=== PATIENT | male | born 1930 | race Caucasian/White ===

== ENCOUNTER → 2016-07-30 | Outpatient (CLI) | payer BC ==
[~2016-07-30] MED LIST: ASPI1TAB83 PO; CEFU1TAB36 PO; CIPR250T3 PO; CMD5 PO; ERGO1TAB10 PO; ERGO500037 PO; FINA5TAB4 PO; GLUC1CAP35 PO; HYG/25 PO; METO1TAB31 PO; METO25TA3 PO; NITR1CAP33 PO; OXYC-57 PO; PHEN-939 PO
== END | disposition home or self-care (01) ==
LOC: C.PATHSPEC 17:26
PROVIDERS: ATTEND Urology
DX: C65.1 Malignant neoplasm of right renal pelvis (principal); N39.0 Urinary tract infection, site not specified

== ENCOUNTER → 2016-09-05 | Outpatient (CLI) | payer BC ==
[~2016-09-05] MED LIST changes: +METO-478 PO; -METO1TAB31 PO
== END | disposition home or self-care (01) ==
LOC: C.LABSPEC 15:30
PROVIDERS: ATTEND Urology
DX: N39.0 Urinary tract infection, site not specified (principal); C65.1 Malignant neoplasm of right renal pelvis

== ENCOUNTER → 2016-09-05 | Outpatient (CLI) | payer BC | END | disposition home or self-care (01) | LOC: C.PATH 15:41 | PROVIDERS: ATTEND Urology | DX: C65.1 Malignant neoplasm of right renal pelvis (principal) ==

== ENCOUNTER → 2016-10-23 | Outpatient (CLI) | payer BC ==
[2016-10-23 16:50] LABS: HEMATOCRIT 41.9 % (42-52); MEAN CELL VOLUME 105.5 fL (80-100); MEAN CORPUSCULAR HEMOGLOBIN 34.8 pg (25-34); MEAN CORPUSCULAR HGB CONC 32.9 g/dl (32-36); MEAN PLATELET VOLUME 11.3 fL (7.4-10.4); PLATELET COUNT 188 K/uL (130-400); RED BLOOD COUNT 3.97 M/uL (4.7-6.1); WHITE BLOOD COUNT 6.49 K/uL (4.8-10.8)
[2016-10-23 17:04] LABS: BLOOD UREA NITROGEN 30 mg/dl (7-18); BUN/CREATININE RATIO 14.9 (10-20); CALCIUM 8.8 mg/dl (8.5-10.1); CARBON DIOXIDE 27 mmol/L (21-32); CHLORIDE 110 mmol/L (98-107); GLUCOSE 80 mg/dl (70-99); PHOSPHORUS 2.4 mg/dl (2.5-4.9); POTASSIUM 4.5 mmol/L (3.5-5.1); SODIUM 144 mmol/L (136-145)
[2016-10-23 17:08] LABS: URINE PROTIEN/CREAT RATIO 0.1 (0-0.2); URINE TOTAL PROTEIN 13.5 mg/dl (0-11.9)
[2016-10-23 17:17] LABS: URINE APPEARANCE CLEAR (CLEAR); URINE BILIRUBIN NEG (NEG); URINE COLOR YELLOW; URINE NITRITE NEG (NEG); URINE SPECIFIC GRAVITY 1.021 (1.000-1.030); UROBILINOGEN NEG (NEG)
[2016-10-23 17:21] LABS: MANUAL MICROSCOPIC REQUIRED? NO; REVIEW REQ? NO
== END | disposition home or self-care (01) ==
LOC: C.LABBC 12:44
PROVIDERS: ATTEND Internal Medicine Nephrology
DX: N18.4 Chronic kidney disease, stage 4 (severe) (principal); R60.9 Edema, unspecified; I12.9 Hypertensive chronic kidney disease with stage 1 through stage 4 chronic kidney disease, or unspecified chronic kidney disease; E55.9 Vitamin D deficiency, unspecified

== ENCOUNTER → 2017-01-29 | Outpatient (CLI) | payer BC ==
[~2017-01-29] MED LIST changes: -METO-478 PO; +METO1TAB31 PO
--- NOTE | 2017-01-29 11:51 | DIAGNOSTIC IMAGING REPORT ---
BRAIN WITHOUT CONTRAST CLINICAL HISTORY: 86 years-old Male presenting with EXERTIONAL KENDRICK. TECHNIQUE: Multisequence, multiplanar MR imaging of the brain was performed without the use of intravenous contrast. IV contrast: None. COMPARISON: 05/25/2007. FINDINGS: Ventricles and sulci normal in size. Periventricular and subcortical white matter T2/FLAIR hyperintensity, nonspecific but likely indicative of chronic small vessel ischemic change. No mass effect or midline shift. No restricted diffusion to suggest acute ischemia. No hemorrhage. No extra-axial fluid collection. T2 skull base flow voids preserved. Bone marrow signal intensity within the calvarium within normal limits. IMPRESSION: No acute intracranial abnormality. Electronically signed by: Jaime Ballesteros M.D. 01/29/2017 11:49 AM Dictated Date/Time: 01/29/2017 11:46 AM
== END | disposition home or self-care (01) ==
LOC: C.MRIBC 10:33
PROVIDERS: ATTEND Family Medicine
DX: G44.84 Primary exertional headache (principal)

== ENCOUNTER 2017-02-12 12:36 | Day surgery (SDC) | payer BC ==
[2017-01-29 13:41] VITALS: Ht 182.9 cm; Wt 110.4 kg
--- NOTE | 2017-01-29 14:23 | PAT Medication Instructions ---
Service Date Jan 29, 2017. Current Home Medication List Aspirin (Aspirin), 1 TAB PO QAM Ergocalciferol (Vitamin D 66465 Unit), 50,000 UNIT PO MONTHLY Finasteride (Proscar), 1 TAB PO QAM Exduxefywpy-Ylfyllhkkon-Arr C- (Glucosamine Chondroitin), 1 TAB PO QAM Metoprolol Succinate (Toprol Xl), 2 TAB PO QPM Nitrofurantoin Macrocrystals (Macrodantin), 1 CAP PO QPM Warfarin Sod (Coumadin), 1 TAB PO SEE NOTES BELOW Medication Instructions For Your Scheduled Surgery - Hold the following medications 2 weeks prior to surgery: Hqwfcvviuyc-Lunxssssnas-Rys C- (Glucosamine Chondroitin), 1 TAB PO QAM - Hold the following medications 5 days prior to surgery per surgeon and cardiology: Warfarin Sod (Coumadin), 1 TAB PO SEE NOTES BELOW Aspirin (Aspirin), 1 TAB PO QAM - Take the following medications the morning of surgery with a sip of water OTHERWISE NOTHING TO EAT OR DRINK AFTER MIDNIGHT: Finasteride (Proscar), 1 TAB PO QAM - Take the following medications as scheduled the night before surgery: Metoprolol Succinate (Toprol Xl), 2 TAB PO QPM Nitrofurantoin Macrocrystals (Macrodantin), 1 CAP PO QPM If you have any questions please call us at [phone] or [phone] or [phone]
--- NOTE | 2017-01-29 15:19 | DIAGNOSTIC IMAGING REPORT ---
CHEST PREADMISSION(PA/LAT) CLINICAL HISTORY: 86 years-old Male presenting with preadmission chest x-ray. TECHNIQUE: PA and lateral views of the chest were obtained. COMPARISON: None. FINDINGS: Cardiomediastinal silhouette normal. Bilateral eventrations of the hemidiaphragms. Lungs and pleural spaces clear. Degenerative changes of the thoracic spine. Upper abdomen normal. IMPRESSION: 1. No acute cardiopulmonary disease. Electronically signed by: Jaime Ballesteros M.D. 01/29/2017 3:17 PM Dictated Date/Time: 01/29/2017 3:16 PM
[2017-01-29 15:28] LABS: BASO % 0.6 %; BASO ABS # 0.04 K/uL (0-0.2); COMPLETE YES; EOS % 3.2 %; IG% 0.3 %; LYMPH % 23.5 %; LYMPH ABS # 1.47 K/uL (1.2-3.4); MEAN CELL VOLUME 102.3 fL (80-100); MEAN CORPUSCULAR HGB CONC 33.3 g/dl (32-36); MEAN PLATELET VOLUME 10.9 fL (7.4-10.4); MONO % 10.9 %; NEUT % 61.5 %; PLATELET COUNT 192 K/uL (130-400); RED BLOOD COUNT 3.91 M/uL (4.7-6.1); WHITE BLOOD COUNT 6.25 K/uL (4.8-10.8)
[2017-01-29 15:28] LABS: URINE APPEARANCE CLEAR (CLEAR); URINE BILIRUBIN NEG (NEG); URINE COLOR YELLOW; URINE NITRITE NEG (NEG); URINE PH 5.5 (4.5-7.5); URINE SPECIFIC GRAVITY 1.022 (1.000-1.030); UROBILINOGEN NEG (NEG)
[2017-01-29 15:29] LABS: MANUAL MICROSCOPIC REQUIRED? NO; REVIEW REQ? NO
[2017-01-29 16:18] LABS: BUN/CREATININE RATIO 14.9 (10-20); CALCIUM 9.2 mg/dl (8.5-10.1); CREATININE 1.9 mg/dl (0.60-1.40); POTASSIUM 4.4 mmol/L (3.5-5.1)
[~2017-02-12] VITALS: Ht 182.9 cm; Wt 110.4 kg
[~2017-02-12 12:36] MED LIST changes: -CEFU1TAB36 PO; -CIPR250T3 PO; +CIPROFLOXACIN / D5W 400 MG IV SCH; -ERGO1TAB10 PO; +GENTAMICIN INJ 80 MG in DEXTROSE 5% 100ML 100 ML IV SCH; -HYG/25 PO; -METO25TA3 PO; +MITOMYCIN FOR IR SCH; -OXYC-57 PO; -PHEN-939 PO; +SODIUM CHLORIDE 0.9% 1000ML 1,000 ML IV SCH
--- NOTE | 2017-02-12 13:14 | History & Physical Bridge Note ---
H&P Re-Evaluation Bridge Note: I have examined the patient, reviewed the History & Physical and in the interval since the performance of the History & Physical I have noted the following changes of clinical significance: No changes noted
[2017-02-12 13:25] VITALS: BP 177/83; PULSE 58; TEMP 36; O2SAT 98
[2017-02-12 13:29] LABS: INR 1.1 (0.9-1.1); PARTIAL THROMBOPLASTIN RATIO 1.1; PROTHROMBIN TIME (PATIENT) 11.7 SECONDS (9.0-12.0)
[2017-02-12] MEDS ORDERED: FENTANYL CITRATE INJ 50 MCG/1 ML 2 ML VIAL ONE (14:15)
[2017-02-12] MEDS ORDERED: PROPOFOL IV EMULSION 10 MG/ML 20 ML VIAL IV ONE (14:16)
[2017-02-12] MEDS ORDERED: LIDOCAINE HCL 2% 2 ML VIAL (20MG/ML) ONE (14:57)
[2017-02-12] MEDS ORDERED: BELLADONNA/OPIUM SUPP 60 MG SUPP PR ONE (14:57)
[2017-02-12] MEDS ORDERED: PROMETHAZINE HCL INJ 12.5 MG in SODIUM CHLORIDE 0.9% 50ML 50 ML IV PRN (15:00)
[2017-02-12] MEDS ORDERED: NALOXONE HCL 0.4 MG/1 ML VIAL/CARP IV PRN (15:00)
[2017-02-12] MEDS ORDERED: EpHEDrine SULFATE INJ 50 MG/ML AMP IV PRN (15:00)
[2017-02-12] MEDS ORDERED: ONDANSETRON INJ 2 MG/ML 2 ML VIAL IV PRN (15:00)
[2017-02-12] MEDS ORDERED: FLUMAZENIL 0.1 MG/1 ML 10 ML VIAL IV PRN (15:00)
[2017-02-12] MEDS ORDERED: ATROPINE SULFATE 0.1 MG/ML 5ML SYR IV PRN (15:00)
[2017-02-12] MEDS ORDERED: FENTANYL CITRATE INJ 50 MCG/1 ML 2 ML VIAL IV PRN (15:00)
[2017-02-12] MEDS ORDERED: LABETALOL HCL IV 5 MG/ML 20ML IV PRN (15:00)
[2017-02-12] MEDS ORDERED: SODIUM CHLORIDE 0.9% INJ 10 ML VIAL ONE (15:35)
[2017-02-12] MEDS ORDERED: EpHEDrine SULFATE INJ 50 MG/ML AMP ONE (15:35)
[2017-02-12] MEDS ORDERED: PHENYLEPHRINE 100MCG/ML 5ML SYR ONE (15:35)
[2017-02-12] MEDS ORDERED: CIPR250T3 PO (15:44)
[2017-02-12] MEDS ORDERED: OXYC-57 PO (15:44)
[2017-02-12] MEDS ORDERED: PHEN-939 PO (15:44)
--- NOTE | 2017-02-12 15:47 | Discharge Instructions ---
Discharge Instructions Date of Service Feb 12, 2017. Admission Reason for Admission: Bladder Cancer Discharge Discharge Diagnosis / Problem: Urothelial cancer of prostate s/p resection Discharge Goals Goal(s): Improve disease control, Diagnostic testing, Therapeutic intervention Activity Recommendations Activity Limitations: as noted below Lifting Limitations: no more than 25 pounds, gradually increase as tolerated ( x 3-5 days) Exercise/Sports Limitations: rest today, gradually increase as tolerated (x 3- 5 days) May Resume Sexual Activity: after two weeks Shower/Bathe: tomorrow . Instructions / Follow-Up Instructions / Follow-Up In office as scheduled for vo removal and for discussion of pathology Discharge Diet Recommended Diet: Regular Diet (good fluid intake) Procedures Procedures Performed: Transurethral Resection Prostate with Tumor; Mitomycin C Instillation Pending Studies Studies pending at discharge: yes List of pending studies: Pathology review Medical Emergencies . Who to Call and When: Medical Emergencies: If at any time you feel your situation is an emergency, please call 911 immediately. . Non-Emergent Contact Non-Emergency issues call your: Urologist Call Non-Emergent contact if: you have a fever, temperature is above 101, your pain is not controlled, your pain is worsening, your pain is unusual for you, your pain is concerning you, you have any medication questions . . "Provider Documentation" section prepared by Casey Castle. . VTE Core Measure Inpt VTE Proph given/why not?: SCD's [place] Drug Monitoring Program Search Results: patient reviewed within database, no issues identified
--- NOTE | 2017-02-12 15:56 | [facility] Post Operative Brief Note ---
Immediate Operative Summary Operative Date Feb 12, 2017. Pre-Operative Diagnosis Urothelial lesion of the bladder neck and prostate, history of bladder and right renal pelvis urothelial carcinoma Post-Operative Diagnosis Same Procedure(s) Performed Transurethral Resection Prostate with Tumor; Mitomycin C Instillation Surgeon Dr. Casey Castle Leather Skinner Surgeon(s) none Estimated Blood Loss 30 ml Findings 40 mg of Mitomycin C instilled in 40 cc H2O, bladder neck tumor and prostate resected, no other intravesical lesions Specimens a. prostate with tumor b. prostate chips Drains 22 fr vo 10 cc H2O Anesthesia GALMA Complication(s) None Disposition Recovery Room / PACU
[2017-02-12] MEDS ORDERED: OXYCODONE/ACETAMINOPHEN 5-325 TAB PO PRN (16:00)
[2017-02-12] MEDS ORDERED: PHENAZOPYRIDINE HCL 100 MG TAB PO PRN (16:00)
--- NOTE | 2017-02-12 16:00 | Anesthesiology Progress Note ---
Anesthesia Post Op Note Date & Time Feb 12, 2017 at 15:59 Vital Signs Pain Intensity: 0 Vital Signs Past 12 Hours Date Time Temp Pulse Resp B/P (MAP) Pulse Ox O2 Delivery O2 Flow Rate FiO2 02/12/17 15:45 47 14 169/93 98 Oxymask 3 02/12/17 15:35 36.1 52 14 157/99 100 Oxymask 10 02/12/17 15:28 36.1 52 16 182/90 100 Oxymask 10 02/12/17 13:25 36 58 20 177/83 (114) 98 Room Air Notes Mental Status: alert / awake / arousable, participated in evaluation Pt Amnestic to Procedure: Yes Nausea / Vomiting: adequately controlled Pain: adequately controlled Airway Patency, RR, SpO2: stable & adequate BP & HR: stable & adequate Hydration State: stable & adequate Anesthetic Complications: no major complications apparent
--- NOTE | 2017-02-12 16:01 | [facility] Operative Report ---
Operative Report Operative Date Feb 12, 2017. Pre-Operative Diagnosis Urothelial lesion of the bladder neck and prostate, history of bladder and right renal pelvis urothelial carcinoma Post-Operative Diagnosis Same Procedure(s) Performed Transurethral Resection Prostate with Tumor; Mitomycin C Instillation Surgeon Dr. Casey Castle Electroformer Surgeon(s) none Estimated Blood Loss 30 ml Findings 40 mg of Mitomycin C instilled in 40 cc H2O, bladder neck tumor and prostate resected, no other intravesical lesions Specimens a. prostate with tumor b. prostate chips Drains 22 fr vo 10 cc H2O Anesthesia GALMA Complication(s) None Disposition Recovery Room / PACU Indications 86-year-old male well known to myself with a history of right upper tract high-grade urothelial carcinoma status post hand-assisted laparoscopic nephroureterectomy with bladder recurrences. He is here due to his most recent finding on office cystoscopy papillary tumor circumferentially at the level of the bladder neck. No tumor within the bladder itself was noted. Right ureteral orifice is surgically absent due to his history. Intravenous antibiotic provided preoperatively and SCDs used for DVT prophylaxis. Consent reviewed in the chart prior to surgery. Please see H&P for further details. Patient is here today for surgical management of his bladder findings. Description of Procedure Patient was properly identified and brought into the operative suite after identification of appropriate consent of the chart. General anesthesia with laryngeal mask was initiated and patient was prepped and draped in standard fashion for this procedure. Full timeout procedure was followed. 28 Syrian resectoscope was introduced into the bladder with a bipolar loop. Circumferential resection of the bladder neck to remove the involved tissue of the bladder neck and prostate was performed. The initial level of resection was irrigated free and sent as prostate with tumor. Intravesical findings were unchanged from previous office examination. Left ureteral orifice was noted to be well removed from the plane of dissection. After the initial tissue was irrigated free a formal TURP was completed with circumferential resection of the prostate tissue to avoid scarring and obstruction in the future. After an initial pass of dissection the prostate chips were irrigated free and sent as a separate specimen. Bipolar button was used to ablate and vaporize remaining tissue as well as obtain hemostasis circumferentially. Careful inspection of the bladder neck at various degrees of bladder distention was carried out to ensure a lack of any residual tumor being present. When excellent hemostasis was obtained and I was satisfied that there was no further cancer present bladder was partially distended resectoscope was removed. 22 Syrian Vo catheter was placed with 10 mL of sterile water in the balloon and return of clear irrigant. 40 mL of mitomycin C was instilled into the bladder and 40 mL of water and bladder was clamped. This will be drained approximately 2 hours after clamping. Anesthesia was reversed and patient was transferred to the recovery room in stable condition. Follow-up care: Patient to be discharged home today with Vo catheter in place after drainage of mitomycin C. Trial void is scheduled for tomorrow. Prescription for ciprofloxacin, Percocet and Pyridium for provided. Patient is instructed to contact our service should he note any fevers, chills, nausea, vomiting or other significant difficulties in the postoperative period. Care is iscussed with the patient and the patient's and postoperative appointments confirmed. I attest to the content of the Intraoperative Record and any orders documented therein. Any exceptions are noted below.
[2017-02-12 16:10] VITALS: BP 161/83; PULSE 45; TEMP 36.6; O2SAT 97
[2017-02-12 16:40] VITALS: BP 153/70; PULSE 40; O2SAT 97
[2017-02-12 17:10] VITALS: BP 136/69; PULSE 66; TEMP 36.1; O2SAT 98
== END 2017-02-12 17:49 | disposition home or self-care (01) ==
LOC: C.ACU 12:36
PROVIDERS: ATTEND Urology
DX: D07.5 Carcinoma in situ of prostate (principal); D09.0 Carcinoma in situ of bladder; C65.1 Malignant neoplasm of right renal pelvis; I48.91 Unspecified atrial fibrillation; N40.0 Benign prostatic hyperplasia without lower urinary tract symptoms; N18.4 Chronic kidney disease, stage 4 (severe); I12.9 Hypertensive chronic kidney disease with stage 1 through stage 4 chronic kidney disease, or unspecified chronic kidney disease; E55.9 Vitamin D deficiency, unspecified; Z90.5 Acquired absence of kidney; Z79.899 Other long term (current) drug therapy; Z79.82 Long term (current) use of aspirin; Z79.01 Long term (current) use of anticoagulants

== ENCOUNTER → 2017-04-23 | Outpatient (CLI) | payer BC ==
[~2017-04-23] MED LIST changes: +CIPR250T3 PO; -CIPROFLOXACIN / D5W 400 MG IV SCH; -GENTAMICIN INJ 80 MG in DEXTROSE 5% 100ML 100 ML IV SCH; +METO-478 PO; -METO1TAB31 PO; -MITOMYCIN FOR IR SCH; +OXYC-57 PO; -SODIUM CHLORIDE 0.9% 1000ML 1,000 ML IV SCH
== END | disposition home or self-care (01) ==
LOC: C.PATHSPEC 17:05
PROVIDERS: ATTEND Urology
DX: N39.0 Urinary tract infection, site not specified (principal)

== ENCOUNTER → 2017-04-24 | Outpatient (CLI) | payer BC ==
[2017-04-24 16:53] LABS: MEAN CELL VOLUME 104.3 fL (80-100); MEAN CORPUSCULAR HEMOGLOBIN 34.1 pg (25-34); MEAN CORPUSCULAR HGB CONC 32.7 g/dl (32-36); MEAN PLATELET VOLUME 11.6 fL (7.4-10.4); PLATELET COUNT 188 K/uL (130-400); RED BLOOD COUNT 3.93 M/uL (4.7-6.1); WHITE BLOOD COUNT 6.91 K/uL (4.8-10.8)
[2017-04-24 17:08] LABS: URINE APPEARANCE CLOUDY (CLEAR); URINE BILIRUBIN NEG (NEG); URINE COLOR YELLOW; URINE NITRITE NEG (NEG); URINE SPECIFIC GRAVITY 1.022 (1.000-1.030); UROBILINOGEN NEG (NEG)
[2017-04-24 17:12] LABS: MANUAL MICROSCOPIC REQUIRED? NO; REVIEW REQ? YES; URINE PROTIEN/CREAT RATIO 0.6 (0-0.2); URINE TOTAL PROTEIN 158.2 mg/dl (0-11.9)
[2017-04-24 17:22] LABS: BLOOD UREA NITROGEN 25 mg/dl (7-18); BUN/CREATININE RATIO 12.5 (10-20); CALCIUM 6.7 mg/dl (8.5-10.1); CARBON DIOXIDE 23 mmol/L (21-32); CHLORIDE 107 mmol/L (98-107); CREATININE 1.99 mg/dl (0.60-1.40); GLUCOSE 93 mg/dl (70-99); POTASSIUM 5.8 mmol/L (3.5-5.1); SODIUM 135 mmol/L (136-145)
== END | disposition home or self-care (01) ==
LOC: C.LABBC 14:14
PROVIDERS: ATTEND Internal Medicine Nephrology
DX: N20.0 Calculus of kidney (principal); I12.9 Hypertensive chronic kidney disease with stage 1 through stage 4 chronic kidney disease, or unspecified chronic kidney disease; N18.4 Chronic kidney disease, stage 4 (severe); Z90.5 Acquired absence of kidney; E55.9 Vitamin D deficiency, unspecified

== ENCOUNTER → 2017-05-01 | Outpatient (CLI) | payer BC ==
[2017-05-01 17:12] LABS: BLOOD UREA NITROGEN 28 mg/dl (7-18); BUN/CREATININE RATIO 15.4 (10-20); CALCIUM 8.5 mg/dl (8.5-10.1); CARBON DIOXIDE 26 mmol/L (21-32); CHLORIDE 106 mmol/L (98-107); CREATININE 1.82 mg/dl (0.60-1.40); GLUCOSE 103 mg/dl (70-99); PHOSPHORUS 2.8 mg/dl (2.5-4.9); SODIUM 137 mmol/L (136-145)
== END | disposition home or self-care (01) ==
LOC: C.LABBC 14:09
PROVIDERS: ATTEND Internal Medicine Nephrology
DX: N18.4 Chronic kidney disease, stage 4 (severe) (principal)

== ENCOUNTER → 2017-06-17 | Outpatient (CLI) | payer BC ==
[2017-06-17 13:55] LABS: BLOOD UREA NITROGEN 22 mg/dl (7-18); CREATININE 1.76 mg/dl (0.60-1.40)
== END | disposition home or self-care (01) ==
LOC: C.LABBC 12:07
PROVIDERS: ATTEND Urology
DX: C65.1 Malignant neoplasm of right renal pelvis (principal); D09.0 Carcinoma in situ of bladder; C61 Malignant neoplasm of prostate; N40.0 Benign prostatic hyperplasia without lower urinary tract symptoms

== ENCOUNTER → 2017-06-29 | Outpatient (CLI) | payer BC ==
--- NOTE | 2017-06-29 14:40 | DIAGNOSTIC IMAGING REPORT ---
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 TECHNIQUE: Multidetector CT of the abdomen and pelvis was performed without the use of intravenous contrast. IV contrast: None. A dose lowering technique was used consistent with the principles of ALARA (as low as reasonably achievable). COMPARISON: 01/28/2016. CT DOSE (mGy.cm): The estimated cumulative dose is 1114.91 mGy.cm. FINDINGS: Cloud Automation Tester topogram: Unremarkable. Lung bases: Minimal basilar opacities, likely atelectasis. Multichamber enlargement of the heart. Coronary artery calcification. No pericardial or pleural effusion. Liver: Normal morphology. Well-defined hypodensities in the right hepatic lobe, indeterminate but possibly hepatic cysts. These are unchanged from prior. Biliary: No gross biliary ductal dilatation allowing for noncontrast technique. Gallbladder decompressed. Pancreas: Moderate parenchymal atrophy. Spleen: Normal noncontrast appearance. Adrenal glands: Normal noncontrast appearance. Kidneys and ureters: Postsurgical changes of right nephrectomy. No suspicious soft tissue in the operative bed. Normal noncontrast appearance of the left renal parenchyma. No nephrolithiasis or hydronephrosis. Left ureter normal. Bladder: Incompletely evaluated secondary to underdistention. Pelvic organs: Prostate and seminal vesicles normal. Bowel: Mild stool burden primarily in the transverse and right colon. The appendix is normal. No bowel obstruction. Peritoneal cavity: No free fluid or intraperitoneal gas. Lymph nodes: No gross lymphadenopathy allowing for noncontrast technique. Vasculature: Atherosclerosis of the normal caliber abdominal aorta. Abdominal wall: Nonspecific subcutaneous edema in the lumbar region. Musculoskeletal: Degenerative changes of the spine. Suspected Schmorl's node at the inferior endplate of L3 versus hemangioma. No destructive osseous lesion. IMPRESSION: 1. Redemonstration of postsurgical changes of right nephrectomy. No evidence of recurrent disease allowing for noncontrast technique. No lymphadenopathy. Electronically signed by: Jaime Ballesteros M.D. 06/29/2017 2:38 PM Dictated Date/Time: 06/29/2017 2:32 PM
== END | disposition home or self-care (01) ==
LOC: C.CTS 13:33
PROVIDERS: ATTEND Urology
DX: C61 Malignant neoplasm of prostate (principal); C65.1 Malignant neoplasm of right renal pelvis; D09.0 Carcinoma in situ of bladder; Z90.5 Acquired absence of kidney

== ENCOUNTER → 2017-07-09 | Outpatient (CLI) | payer BC ==
--- NOTE | 2017-07-09 16:32 | DIAGNOSTIC IMAGING REPORT ---
CHEST 2 VIEWS ROUTINE CLINICAL HISTORY: Cough. Wheezing. COMPARISON STUDY: Chest radiograph January 29, 2017. FINDINGS: Lung volumes are normal. There is no pneumothorax or pleural effusion. Cardiomediastinal silhouette is stable. Mild cardiomegaly is unchanged. There is no evidence for pulmonary edema. IMPRESSION: No acute cardiopulmonary findings. Electronically signed by: Jose Carcamo M.D. 07/09/2017 4:31 PM Dictated Date/Time: 07/09/2017 4:30 PM
== END | disposition home or self-care (01) ==
LOC: C.RAD1850 16:09
PROVIDERS: ATTEND Family Medicine
DX: R05 Cough (principal); R06.2 Wheezing; R06.02 Shortness of breath

== ENCOUNTER → 2017-08-31 | Outpatient (CLI) | payer BC ==
[~2017-08-31] MED LIST changes: -CIPR250T3 PO; -OXYC-57 PO
--- NOTE | 2017-08-31 17:29 | DIAGNOSTIC IMAGING REPORT ---
MRA HEAD WITHOUT CONTRAST CLINICAL HISTORY: 87 years-old Male presenting with new onset headaches. TECHNIQUE: MR angiography of the head was performed without the use of intravenous contrast using 3-D jmpz-ce-raurdw technique. 3-D volumetric and/or maximum intensity projection (MIP) images were subsequently reconstructed for review. IV contrast: None. COMPARISON: Noncontrast brain MR from 2017. FINDINGS: Anterior circulation: Distal cervical segment of the right internal carotid artery demonstrates poor flow related enhancement relative to the left, possibly indicating slow flow or stenosis. Intracranial portions of the internal carotid arteries patent to the level of the termini. Infundibulum versus diminutive blister aneurysm at the left internal carotid artery terminus (series 3 image 155). Anterior and middle cerebral arteries patent. Anterior communicating artery patent. Posterior circulation: Codominant vertebral arteries. Intradural portions of the vertebral arteries patent. Posterior inferior cerebellar arteries patent. Basilar artery patent. Anterior inferior cerebellar arteries poorly visualized. Superior cerebellar arteries patent. Left posterior cerebral artery patent. origin of the right posterior cerebral artery. Patent right posterior communicating artery. Hypoplastic or aplastic left posterior commuting artery. IMPRESSION: 1. No significant intracranial stenosis, aneurysm, or focal vessel occlusion. Infundibulum versus diminutive blister aneurysm at the left internal carotid artery terminus. 2. Possible stenosis or slow flow in the distal cervical segment of the right internal carotid artery. Electronically signed by: Jaime Ballesteros M.D. 08/31/2017 5:28 PM Dictated Date/Time: 08/31/2017 5:21 PM
== END | disposition home or self-care (01) ==
PROVIDERS: ATTEND Physician Assistant
DX: G44.84 Primary exertional headache (principal); R51 Headache

== ENCOUNTER → 2017-09-10 | Outpatient (CLI) | payer BC ==
--- NOTE | 2017-09-10 13:19 | DIAGNOSTIC IMAGING REPORT ---
BILATERAL CAROTID DOPPLER STUDY HISTORY: I65.29 Carotid stenosis [id number] COMPARISON: Carotid Doppler 05/25/2007. TECHNIQUE: Real-time, grayscale, and color Doppler sonography of the carotid arteries was performed. Imaging reviewed in the transverse and longitudinal planes. All measurements were calculated based on NASCET criteria. FINDINGS: Antegrade flow is seen in the bilateral vertebral arteries. The brachial pressures are hemodynamically similar. Mild calcified plaque within the bilateral carotid bulbs. The peak systolic velocity within the right ICA is 66 cm/s. The right systolic ratio is 0.6. The peak systolic velocity within the left ICA is 58 cm/s. The left systolic ratio is 0.7. IMPRESSION: No hemodynamically significant stenosis seen within the carotid arteries. Electronically signed by: Sreedhar Rich M.D. 09/10/2017 1:17 PM Dictated Date/Time: 09/10/2017 1:12 PM
== END | disposition home or self-care (01) ==
LOC: C.ULTRBC 12:22
PROVIDERS: ATTEND Physician Assistant
DX: I65.29 Occlusion and stenosis of unspecified carotid artery (principal)

== ENCOUNTER → 2017-12-09 | Outpatient (CLI) | payer BC | END | disposition home or self-care (01) | LOC: C.PATHSPEC 17:45 | PROVIDERS: ATTEND Urology | DX: C61 Malignant neoplasm of prostate (principal) ==

== ENCOUNTER → 2018-01-05 | Day surgery (SDC) | payer BC ==
[2017-12-28 12:14] VITALS: BMI 31.0
--- NOTE | 2017-12-29 15:15 | PAT Medication Instructions ---
Service Date Dec 29, 2017. Current Home Medication List Aspirin (Aspirin), 1 TAB PO QAM Ergocalciferol (Vitamin D 87936 Unit), 50,000 UNIT PO MONTHLY Finasteride (Proscar), 1 TAB PO QAM Rhsspztmdrh-Cvpumaxqydr-Awg C- (Glucosamine Chondroitin), 1 TAB PO QAM Metoprolol Succinate (Toprol Xl), 2 TAB PO QPM Warfarin Sod (Coumadin), 1 TAB PO SEE NOTES BELOW Medication Instructions For Your Scheduled Surgery - Check with surgeon and prescribing physician for instructions: Warfarin Sod (Coumadin), 1 TAB PO SEE NOTES BELOW Aspirin (Aspirin), 1 TAB PO QAM - Hold the following medications starting 12/31/17: Voqchomgvtb-Gyknpdoxzde-Dmu C- (Glucosamine Chondroitin), 1 TAB PO QAM - Continue as directed: Ergocalciferol (Vitamin D 44719 Unit), 50,000 UNIT PO MONTHLY - Take the following medications the morning of surgery with a sip of water: Finasteride (Proscar), 1 TAB PO QAM - Take the following medications as scheduled the night before surgery: Metoprolol Succinate (Toprol Xl), 2 TAB PO QPM If you have any questions please call us at [phone] or [phone] or [phone]
[2017-12-30 08:56] VITALS: BMI 32.0
[2017-12-30 10:03] LABS: BASO % 0.9 %; BASO ABS # 0.06 K/uL (0-0.2); EOS % 3.6 %; EOS ABS # 0.23 K/uL (0-0.5); HEMATOCRIT 39.9 % (42-52); HEMOGLOBIN 13.2 g/dL (14.0-18.0); IG# 0.02 K/uL (0.00-0.02); LYMPH % 11.4 %; LYMPH ABS # 0.72 K/uL (1.2-3.4); MEAN CELL VOLUME 101.8 fL (80-100); MEAN CORPUSCULAR HEMOGLOBIN 33.7 pg (25-34); MEAN CORPUSCULAR HGB CONC 33.1 g/dl (32-36); MEAN PLATELET VOLUME 10.8 fL (7.4-10.4); MONO % 13.2 %; MONO ABS # 0.84 K/uL (0.11-0.59); NEUT % 70.6 %; NEUT ABS # 4.47 K/uL (1.4-6.5); PLATELET COUNT 198 K/uL (130-400); RED CELL DISTRIBUTION WIDTH CV 13.7 % (11.5-14.5); RED CELL DISTRIBUTION WIDTH SD 51.3 fL (36.4-46.3); WHITE BLOOD COUNT 6.34 K/uL (4.8-10.8)
[2017-12-30 10:17] LABS: CALCIUM 8.6 mg/dl (8.5-10.1); CREATININE 1.73 mg/dl (0.60-1.40); POTASSIUM 4.4 mmol/L (3.5-5.1)
[~2018-01-05] VITALS: Ht 182.9 cm; Wt 108.1 kg
[~2018-01-05] MED LIST changes: +ATROPINE SULFATE 0.1 MG/ML 5ML SYR IV PRN; +BELLADONNA/OPIUM SUPP 60 MG SUPP PR ONE; +CIPR1TAB11 PO; +CIPROFLOXACIN / D5W 400 MG IV SCH; +DEXAMETHASONE SOD INJ 4 MG/ML VIAL ONE; +DIPH-437 PO; +EpHEDrine SULFATE INJ 50 MG/ML AMP IV PRN; +FENTANYL CITRATE INJ 50 MCG/1 ML 2 ML VIAL IV PRN; +FENTANYL CITRATE INJ 50 MCG/1 ML 2 ML VIAL ONE; +LACTATED RINGER'S 1000ML 1,000 ML IV SCH; +LIDOCAINE HCL 2% 2 ML VIAL (20MG/ML) ONE; +MITOMYCIN FOR INJ 40 MG in SYRINGE 40 ML INSTIL SCH; -NITR1CAP33 PO; +NITR50CA39 PO; +ONDANSETRON INJ 2 MG/ML 2 ML VIAL IV PRN; +ONDANSETRON INJ 2 MG/ML 2 ML VIAL ONE; +OXYC-57 PO; +OXYCODONE/ACETAMINOPHEN 5-325 TAB PO PRN; +PHEN-774 PO; +PHENAZOPYRIDINE HCL 100 MG TAB PO PRN; +PROPOFOL IV EMULSION 10 MG/ML 20 ML VIAL ONE
[2018-01-05 09:51] VITALS: BP 139/67; PULSE 58; TEMP 36.7; O2SAT 97; Ht 182.9 cm; Wt 108.1 kg
[2018-01-05 09:59] LABS: INR 1.4 (0.9-1.1); PTT PATIENT 31.3 SECONDS (21.0-31.0)
--- NOTE | 2018-01-05 10:09 | Discharge Instructions ---
Discharge Instructions Date of Service Jan 05, 2018. Admission Reason for Admission: Recurrent Urothelial Carcinoma Of Prostate Discharge Discharge Diagnosis / Problem: Urothelial CA of prostate s/p TURP and mitomycin C instillation Discharge Goals Goal(s): Improve disease control, Diagnostic testing, Therapeutic intervention Activity Recommendations Activity Limitations: as noted below Lifting Limitations: no more than 25 pounds, gradually increase as tolerated Exercise/Sports Limitations: rest today, gradually increase as tolerated May Resume Sexual Activity: after follow-up appointment Shower/Bathe: tomorrow (no tub bath with vo in place) . Instructions / Follow-Up Instructions / Follow-Up Follow-up in office as scheduled for removal of vo and pathology discussion. Current Hospital Diet Patient's current hospital diet: Discharge Diet Recommended Diet: Regular Diet (good fluid intake) Procedures Procedures Performed: Transurethral resection of prostatic recurrent high-grade urothelial tumor, cold cup bladder biopsy with fulguration instillation of Mitomycin C Pending Studies Studies pending at discharge: yes List of pending studies: Pathology review Medical Emergencies . Who to Call and When: Medical Emergencies: If at any time you feel your situation is an emergency, please call 911 immediately. . Non-Emergent Contact Non-Emergency issues call your: Urologist Call Non-Emergent contact if: you have a fever, temperature is above 101, your pain is not controlled, your pain is worsening, your pain is unusual for you, your pain is concerning you, you have any medication questions . . "Provider Documentation" section prepared by Casey Castle. . [place] Drug Monitoring Program Search Results: patient reviewed within database, no issues identified (last Rx Jan 2017 postop)
--- NOTE | 2018-01-05 10:52 | [facility] Operative Report ---
Operative Report Operative Date Jan 05, 2018. Pre-Operative Diagnosis Recurrent high-grade urothelial carcinoma within the prostatic fossa Post-Operative Diagnosis Same Procedure(s) Performed Transurethral resection of prostatic recurrent, high-grade urothelial tumor, cold cup bladder biopsy with bipolar fulguration, instillation of Mitomycin C Surgeon Casey Castle MD Telemetry Technician Surgeon(s) None Estimated Blood Loss 10 cc Findings Abnormal tissue of the prostate resected without bladder perforation, excellent hemostasis at the end of the case. 40 mg of mitomycin-C instilled into the bladder at the end of the case. Specimens Prostate chips, deep tissue of the prostate, right cold cup bladder biopsies. Drains 20 Tuvaluan silicone Bradley with 10 cc of sterile water in the balloon Anesthesia Type General Complication(s) none Disposition no Recovery Room / PACU Indications 87-year-old male with a history of high-grade upper tract urothelial carcinoma as well as bladder recurrences, last positive pathology was at the time of resection of the prostatic urethra in January 2017 until his most recent office cystoscopy. A papillary recurrence at the 11 o'clock position within the prostatic fossa was appreciated and biopsied in the office. This demonstrated recurrent high-grade urothelial carcinoma. Please see H&P for further details. He is here today for resection of this area and instillation of mitomycin-C. Intravenous ciprofloxacin is provided for antibiotic coverage and SCDs for DVT prophylaxis. Description of Procedure Patient was properly identified and brought into the operative suite after identification of appropriate consent of the chart. General anesthesia with laryngeal mask was initiated and patient was prepped and draped in the standard fashion for this procedure. Full timeout procedure was followed. 26 Tuvaluan resectoscope was introduced into the bladder under direct visualization using a visual obturator. Bladder was surveyed in its entirety demonstrating papillary recurrence at the 11 o'clock position is appreciated on cystoscopy with no clear intravesical recurrences or papillary tumors. An area of right-sided bladder wall erythema, not overly suspicious was also noted. Left-sided ureteral orifice was appreciated in its normal location, effluxing clear urine and the right-sided ureteral orifice was surgically absent. Using a thin loop the prostate tissue in question was resected with the first chips being sent as prostate tumor and the second deeper tissue being sent as deep tissue. After this was complete hemostasis was obtained using coagulation settings on the loop. 2 truck sales representative cold cup biopsies of the right bladder wall mucosa were taken without evidence of bladder perforation. These areas were fulgurated for hemostasis. No evidence of residual abnormal tissue was appreciated. Bladder was partially distended and Bradley catheter was placed with return of clear irrigant. 40 mg of mitomycin and 40 cc of water were instilled into the Bradley which was then clamped placed to gravity drainage. Belladonna and opium suppository was provided for additional postoperative analgesia. Anesthesia was reversed the patient was transferred to the recovery room in stable condition. Follow-up instructions: Patient will be discharged home after draining his bladder today with a Bradley catheter in place. Prescription for ciprofloxacin, Pyridium and Percocet are provided. Outpatient appointments for trial of void and pathology discussion are confirmed. Patient is instructed to contact our service should he note any fevers, chills, nausea, vomiting or other difficulties in the postoperative period. I attest to the content of the Intraoperative Record and any orders documented therein. Any exceptions are noted below.
--- NOTE | 2018-01-05 12:11 | Anesthesiology Progress Note ---
Anesthesia Post Op Note Date & Time Jan 05, 2018 at 12:09 Vital Signs Pain Intensity: 0 Vital Signs Past 12 Hours Date Time Temp Pulse Resp B/P (MAP) Pulse Ox O2 Delivery O2 Flow Rate FiO2 01/05/18 12:00 53 16 156/80 95 Room Air 01/05/18 11:50 55 24 154/72 99 Oxymask 10 01/05/18 11:40 55 18 144/80 100 Oxymask 10 01/05/18 11:31 36.0 57 15 155/75 100 Oxymask 10 01/05/18 09:51 36.7 58 18 139/67 (91) 97 Room Air Notes Mental Status: alert / awake / arousable, participated in evaluation Pt Amnestic to Procedure: Yes Nausea / Vomiting: adequately controlled Pain: adequately controlled Airway Patency, RR, SpO2: stable & adequate BP & HR: stable & adequate Hydration State: stable & adequate Anesthetic Complications: no major complications apparent
[2018-01-05 12:15] VITALS: BP 162/95; PULSE 82; TEMP 36.4; O2SAT 92
[2018-01-05 12:45] VITALS: BP 142/76; PULSE 59; TEMP 36.4; O2SAT 92
[2018-01-05 13:15] VITALS: BP 169/79; PULSE 68; O2SAT 96
[2018-01-05 13:45] VITALS: BP 155/70; PULSE 70; TEMP 36.5; O2SAT 98
== END | disposition home or self-care (01) ==
LOC: C.ACU 09:22
PROVIDERS: ATTEND Urology
DX: C61 Malignant neoplasm of prostate (principal); D09.0 Carcinoma in situ of bladder; N40.0 Benign prostatic hyperplasia without lower urinary tract symptoms; N39.0 Urinary tract infection, site not specified; M19.90 Unspecified osteoarthritis, unspecified site; I48.91 Unspecified atrial fibrillation; N18.4 Chronic kidney disease, stage 4 (severe); I25.2 Old myocardial infarction; E66.9 Obesity, unspecified; I12.9 Hypertensive chronic kidney disease with stage 1 through stage 4 chronic kidney disease, or unspecified chronic kidney disease; Z82.49 Family history of ischemic heart disease and other diseases of the circulatory system; Z87.891 Personal history of nicotine dependence; Z79.82 Long term (current) use of aspirin; Z79.01 Long term (current) use of anticoagulants; Z88.1 Allergy status to other antibiotic agents; Z85.528 Personal history of other malignant neoplasm of kidney; Z90.5 Acquired absence of kidney